=== PATIENT | male | born 1955 | race African-American/Black ===

== ENCOUNTER 2021-02-27 10:25 | Emergency (ER) | payer MEDICARE ==
[~2021-02-27] VITALS: Ht 180.3 cm; Wt 75.0 kg
[2021-02-27] MEDS ORDERED: IBUPROFEN 600MG TABLET PO STA (12:05)
[2021-02-27] MEDS ORDERED: NAPR-681 PO (12:33)
[2021-02-27 12:39] VITALS: BP 136/83
== END 2021-02-27 12:40 | disposition home or self-care (01) ==
LOC: ER 10:25
DX: M25.512 Pain in left shoulder (principal); M25.562 Pain in left knee; M25.561 Pain in right knee; W01.0XXA Fall on same level from slipping, tripping and stumbling without subsequent striking against object, initial encounter; Y93.89 Activity, other specified; Y92.89 Other specified places as the place of occurrence of the external cause; Y99.8 Other external cause status; Z88.0 Allergy status to penicillin; Z98.890 Other specified postprocedural states
CPT/HCPCS: 73030; 73562; 99284

== ENCOUNTER 2021-12-23 07:50 | Emergency (ER) | payer MEDICARE ==
[~2021-12-23] VITALS: Ht 185.4 cm; Wt 89.0 kg
[~2021-12-23 07:50] MED LIST: NAPR-681 PO
[2021-12-23 07:53] VITALS: BP 152/95
[2021-12-23] MEDS ORDERED: PERM60CR4 TP (08:44)
[2021-12-23] MEDS ORDERED: DIPH28.34 TP (08:44)
== END 2021-12-23 09:29 | disposition home or self-care (01) ==
LOC: ER 08:32
DX: B86 Scabies (principal); F17.200 Nicotine dependence, unspecified, uncomplicated; I10 Essential (primary) hypertension; Z88.0 Allergy status to penicillin
CPT/HCPCS: 99282